=== PATIENT | female | born 1955 | race Caucasian/White ===

== ENCOUNTER 2016-12-01 09:00 | Emergency (ER) | payer SELFPAY ==
[~2016-12-01 09:00] MED LIST: AVANDAMET 2 MG/1 TA1 PO; AVAPRO PO; BUSPAR PO; EFFEXOR PO; FLEXERIL PO; FLEXERIL10 MG PO; HYDROCHLOROTHIA25 MG PO; ISTALOL; MICRO-K10 MEQ PO; NEXIUM PO; PREMARIN PO; VICODIN 5/1 TAB 5/50 PO; WELLBUTRIN XL PO; XALATAN OP; ZIAC PO; ZYRTEC PO
== END 2016-12-01 13:45 | disposition left against medical advice (07) ==
LOC: CED 09:00
DX: Z53.21 Procedure and treatment not carried out due to patient leaving prior to being seen by health care provider (principal)